=== PATIENT | female | born 1925 ===

== ENCOUNTER 2016-02-13 20:17 | Inpatient (IN) | payer OTHER ==
[~2016-02-13] VITALS: Ht 144.8 cm; Wt 62.0 kg
[~2016-02-13 20:17] MED LIST: ETOMIDATE 20 MG INJ ONE
[2016-02-13 20:25] VITALS: TEMP 98.7
[2016-02-13] MEDS ORDERED: PROPOFOL 100 ML ONE (20:40)
[2016-02-13] MEDS ORDERED: PROPOFOL 100 ML IV STA (20:41)
[2016-02-13] MEDS ORDERED: SUCCINYLCHOLINE CHLORIDE 100 MG/5 ML SYG IV STA (20:41)
[2016-02-13] MEDS ORDERED: ETOMIDATE 20 MG INJ IV STA (20:41)
[2016-02-13] MEDS ORDERED: SOD CHLORIDE 0.9% 1,000 ML IV STA (20:41)
[2016-02-13] MEDS ORDERED: POTA8TAB35 PO (21:10)
[2016-02-13] MEDS ORDERED: PRED5 PO (21:11)
[2016-02-13 21:12] LABS: BASOPHILS % 0.2 % (0.0-2.0); EOSINOPHILS # 0.1 10^3/ul (0.0-0.5); EOSINOPHILS % 0.8 % (0.0-7.0); HEMATOCRIT 40.5 % (37.0-47.0); HEMOGLOBIN 13.1 g/dl (12.0-16.0); LYMPHOCYTES # 5.5 10^3/ul (0.8-2.9); LYMPHOCYTES % 33.3 % (15.0-51.0); MEAN CORPUSCULAR HEMOGLOBIN 29.6 pg (29.0-33.0); MEAN CORPUSCULAR HGB CONC 32.3 g/dl (32.0-37.0); MEAN CORPUSCULAR VOLUME 91.5 fl (82.0-101.0); MEAN PLATELET VOLUME 9.9 fl (7.4-10.4); MONOCYTES % 5.9 % (0.0-11.0); NEUTROPHIL # 9.9 10^3/ul (1.6-7.5); NEUTROPHILS % 59.8 % (39.0-77.0); PLATELET COUNT 246 10^3/UL (140-440); RED BLOOD COUNT 4.42 10^6/ul (4.20-5.40); RED CELL DISTRIBUTION WIDTH 13.7 % (11.5-14.5); UNCORRECTED WBC 16.6 10^3/ul (4.8-10.8); WHITE BLOOD COUNT 16.6 10^3/ul (4.8-10.8)
[2016-02-13] MEDS ORDERED: LOSA50TA6 PO (21:12)
[2016-02-13] MEDS ORDERED: CEPH500C PO (21:13)
[2016-02-13] MEDS ORDERED: ACET-820 PO (21:15)
[2016-02-13] MEDS ORDERED: HYDR-3671 PO (21:15)
[2016-02-13] MEDS ORDERED: FURO40TA4 PO (21:16)
[2016-02-13] MEDS ORDERED: CALC600T11 PO (21:17)
[2016-02-13] MEDS ORDERED: ASPI-664 PO (21:17)
--- NOTE | 2016-02-13 21:18 | RADRPT ---
PROCEDURE: CR, chest CLINICAL INDICATION: Chest pain/after intubation. TECHNIQUE: AP chest. COMPARISON: None available. FINDINGS: The tip of the ET tube is seen 1.5 cm above the laila. The heart is not enlarged. There is calcif ied atherosclerosis of the aortic arch. There is no acute infiltrate in the lungs. No pleural effu sera. IMPRESSION: 1. ET tube in place 1.5 cm above the laila. 2. Calcified atherosclerosis of the aortic arch. 3. Unremarkable chest x-ray. RPTAT: GG .Roque Paredes MD, Date Time Electronically viewed and signed by .Roque Paredes MD, on 02/13/2016 21:17 .Y/
[2016-02-13] MEDS ORDERED: CHOL100062 PO (21:19)
[2016-02-13] MEDS ORDERED: OMEG10006 PO (21:19)
[2016-02-13 21:20] LABS: POTASSIUM 3.4 mmol/L (3.5-5.1)
[2016-02-13] MEDS ORDERED: CYAN100080 PO (21:20)
[2016-02-13] MEDS ORDERED: ATOR20TA38 PO (21:20)
[2016-02-13 21:21] LABS: INR 0.99; PROTIME 13.1 Sec (12.2-14.2)
[2016-02-13] MEDS ORDERED: ATEN50TA PO (21:21)
[2016-02-13 21:22] LABS: PARTIAL THROMBOPLASTIN TIME 23.9 Sec (25.0-35.0)
[2016-02-13 21:23] LABS: CREATININE 0.96 mg/dl (0.44-1.00)
[2016-02-13 21:24] LABS: CALCIUM 8.1 mg/dl (8.4-10.2)
[2016-02-13 21:27] LABS: CONDITION 1
[2016-02-13 21:35] LABS: TROPONIN-I 0.088 ng/ml (0.00-0.12)
[2016-02-13] MEDS ORDERED: MIDAZOLAM 50 MG in DEXTROSE 5% 40 ML IV STA (21:58)
[2016-02-13] MEDS ORDERED: MIDAZOLAM 1 MG/ML 2 ML INJ IV ONE (22:00)
[2016-02-13 22:13] LABS: AADO2 Arterial 178.1 mmHg (7.0-24.0); Allen Test ACCEPTAB; Arterial Base Excess -3.8 mmol/L (-3.0-3); Arterial COHb 0.2 % (0.0-3.0); Arterial Fraction of Oxyhgb 98.9 % (93.0-99.0); Arterial HCO3 21.8 mmol/L (22.0-26.0); Arterial MetHb 0.3 % (0.0-1.5); Arterial Total Hemglobin 11.8 g/dl (12.0-18.0); Blood Gas Low PEEP Setting 0 cmH2O; MODE VENT - AC
--- NOTE | 2016-02-13 22:54 | ERA ---
ER Documentation Chief Complaint Date/Time DATE: 02/13/16 TIME: 22:42 Chief Complaint syncopal episode, mistaken for rosc HPI This is an 89-year-old female brought in as post CPR. Circumstances are unknown whether the patient was seen syncopal or found down. EMS reports they were called by [facility] EMT that the patient did not have a pulse. There were doing CPR for 6-7 minutes before EMS arrival. EMS states that on their arrival they had the paramedics stop CPR and the patient was breathing agonal he did have a pulse of sinus tachycardia. Patient was placed in the stretcher and brought into the ER. They state that shortly after loading the patient into the ambulance that she began to wake up and was moving and talking and was awake and alert and oriented. EMS reports that they feel these windscreen fitter were wrong the patient never lost her pulse because of how fast the patient woke up and was awake and alert and coherent. They feel the patient was more of a syncopal episode with possible low blood pressure. On arrival here the patient is awake and alert and complaining that her chest hurts and she is having a difficult time breathing. She is tripoding and breathing with pursed lips. She will not directly answer historical questions and will not answer my questions if she remembers the preceding events. She does keep saying that her ribs hurt and she is having a hard time breathing. She will not answer my questions regarding her past medical history ROS All systems reviewed and are negative except as per history of present illness. Medications Home Meds Reported Medications Atenolol* (Atenolol*) 50 Mg Tablet, 100 MG PO DAILY, #60 TAB 02/13/16 Atorvastatin Calcium* (Atorvastatin Calcium*) 20 Mg Tablet, 20 MG PO DAILY, #30 TAB 02/13/16 Cyanocobalamin* (Vitamin B-12*) 1,000 Mcg Tablet.sa, 1000 MCG PO DAILY, TAB 02/13/16 Cholecalciferol* (Vitamin D3*) 1,000 Unit Tablet, 1000 UNIT PO DAILY, TAB 02/13/16 [place]-3 Fatty Acids (OMEGA-3) 1,000 Mg Capsule, 1000 MG PO DAILY, CAP 02/13/16 Calcium Carbonate* (Calcium Carbonate*) 600 MG Ca Tab, 600 MG PO BID, TAB 02/13/16 Aspirin* (Aspirin* EC) 81 Mg Tablet.dr, 81 MG PO DAILY, TAB 02/13/16 Furosemide* (Furosemide*) 40 Mg Tablet, 40 MG PO DAILY, TAB 02/13/16 Hydralazine Hcl* (Hydralazine Hcl*) 25 Mg Tab, 25 MG PO BID, #60 TAB 02/13/16 Acetaminophen with Codeine (Tylenol with Codeine #4 Tablet) 1 Each Tablet, 1 EACH PO Q6 Y for PRN, TAB 02/13/16 Cephalexin* (Cephalexin*) 500 Mg Capsule, 500 MG PO Q6, #28 CAP 02/13/16 Losartan Potassium* (Losartan Potassium*) 50 Mg Tablet, 50 MG PO DAILY, TAB 02/13/16 Prednisone* (Prednisone*) 5 Mg Tab, 7.5 MG PO DAILY, TAB 02/13/16 Potassium Chloride* (Klor-Con*) 8 Meq Tablet.sa, 16 MEQ PO DAILY, TAB 02/13/16 Allergies Allergies: Coded Allergies: Penicillins (Verified Allergy, Mild, 02/13/16) meloxicam (Unverified Allergy, Unknown, 02/13/16) PMhx/Soc Smoking Status: Unknown if ever smoked FmHx Unable to obtain because the patient will answer my questions Physical Exam Vitals Vital Signs Date Time Temp Pulse Resp B/P Pulse Ox O2 Delivery O2 Flow Rate FiO2 02/13/16 21:40 75 16 100 40 02/13/16 21:10 84 16 100 100 02/13/16 20:50 92 16 100 100 02/13/16 20:22 108 25 117/79 100 Physical Exam Const: Well-developed, well-nourished Head: Atraumatic, normocephalic Eyes: Normal Conjunctiva, PERRLA, EOMI, normal sclera, no nystagmus ENT: Normal External Ears, Nose and Mouth, moist mucus membranes. Neck: Full range of motion. No meningismus, no lymphadenopathy. Resp: Mild decreased breath sounds bilaterally with scattered rhonchi, rhonchi, no rales, the patient is respiratory distress starting to fatigue she is breathing with pursed lips Cardio: Tachycardia, no murmurs, S1 S2 present Abd: Soft, non tender x 4, non distended. Normal bowel sounds, no guarding or rebound, no pulsitile abdominal masses or bruits Skin: No petechiae or rashes, no ecchymosis , no maculopapular rash Back: No midline or flank tenderness Ext: No cyanosis, or edema, FROM x 4, bilateral forearm skin tears, right knee has an old skin tear wound, neurovascularly intact x 4 Neur: Awake and alert, STR 5/5 x 4, sensation intact x 4, no focal findings, cerebellum intact Psych: Normal Mood and Affect, somewhat anxious Result Diagram: 02/13/16204902/13/162049 Results 24 hrs Laboratory Tests Test 02/13/16 20:41 02/13/16 20:50 Arterial Blood HCO3 21.8mmol/L Arterial Blood Base Excess -3.8mmol/L Arterial Blood Oxygen Saturation 99.4mmHG Albert Test ACCEPTAB Arterial Blood Gas Puncture Site Left Radial Arterial Blood Carboxyhemoglobin 0.2% Arterial Blood Date Drawn 02/13/2016 9:18:25 PM Arterial Blood Methemoglobin 0.3% Arterial Blood pCO2 (Temp correct) 41.5mmhg Arterial Blood pH (Temp corrected) 7.338 Arterial Blood pO2 (Temp corrected) 493.4mmHG Blood Gas A-a O2 Differential 178.1mmHg Blood Gas Actual Respiration Rate 16 Blood Gas Inspiratory Pressure 27.0 Blood Gas Low PEEP Setting 0cmH2O Blood Gas Modality VENT - AC Blood Gas Notified Time 02/13/2016 9:35:26 PM Blood Gas Notified Whom AA Blood Gas Respiration Rate 16.0 Blood Gas Specimen Source Blood arterial Blood Gas Temperature 37.0C Blood Gas Tidal Volume 450.0mL FiO2 100.0% Oxyhemoglobin Percent 98.9% Total Hemoglobin 11.8g/dl Activated Partial Thromboplast Time 23.9Sec Anion Gap 23 B-Type Natriuretic Peptide 443PG/ML Basophils # 0.010^3/ul Basophils % 0.2% Blood Urea Nitrogen 29mg/dl Calcium Level 8.1mg/dl Carbon Dioxide Level 23mmol/L Chloride Level 103mmol/L Creatinine 0.96mg/dl Eosinophils # 0.110^3/ul Eosinophils % 0.8% Glucose Level 206mg/dl Hematocrit 40.5% Hemoglobin 13.1g/dl INR International Normalized Ratio 0.99 Lymphocytes # 5.510^3/ul Lymphocytes % 33.3% Mean Corpuscular Hemoglobin 29.6pg Mean Corpuscular Hemoglobin Concent 32.3g/dl Mean Corpuscular Volume 91.5fl Mean Platelet Volume 9.9fl Monocytes # 1.010^3/ul Monocytes % 5.9% Neutrophils # 9.910^3/ul Neutrophils % 59.8% Nucleated Red Blood Cells # 0.010^3/ul Nucleated Red Blood Cells % 0.0/100WBC Platelet Count 93666^3/UL Potassium Level 3.4mmol/L Prothrombin Time 13.1Sec Prothrombin Time Ratio 1.0 Red Blood Count 4.4210^6/ul Red Cell Distribution Width 13.7% Sodium Level 146mmol/L Troponin I 0.088ng/ml White Blood Count 16.610^3/ul Current Medications Medications (Trade) Dose Ordered Sig/Caroline Route PRN Reason Start Time Stop Time Status Last Admin Dose Admin Propofol 100 ml @ ud STK-MED ONCE .ROUTE 02/13/16 20:40 02/13/16 20:41 DC Sodium Chloride (NS) 1,000 ml @ 1,000 mls/hr Q1H STAT IV 02/13/16 20:41 02/13/16 21:40 DC 02/13/16 20:53 Succinylcholine Chloride (Anectine Syringe) 80 mg ONCE STAT IV 02/13/16 20:41 02/13/16 20:46 DC Etomidate 20 mg 20 mg ONCE STAT IV 02/13/16 20:41 02/13/16 20:46 DC Propofol (Diprivan) 100 ml @ 1.758 mls/ hr ONCE STAT IV 02/13/16 20:41 02/16/16 05:33 02/13/16 20:53 Midazolam HCl 5.86 mg 5.86 mg ONCE ONCE IV 02/13/16 22:00 02/13/16 22:01 DC 02/13/16 22:30 Midazolam HCl/ Dextrose (Versed/D5W) 50 ml @ 3 mls/hr [id number] STAT IV 02/13/16 21:58 02/14/16 14:37 02/13/16 22:28 Procedures/MDM EKG: Rate/Rhythm: Sinus tachycardia heart rate 105 QRS, ST, QT: NORMAL TX, QRS, QT] Impression: Sinus tachycardia PROCEDURE: CR, chest CLINICAL INDICATION: Chest pain/after intubation. TECHNIQUE: AP chest. COMPARISON: None available. FINDINGS: The tip of the ET tube is seen 1.5 cm above the laila. The heart is not enlarged. There is calcified atherosclerosis of the aortic arch. There is no acute infiltrate in the lungs. No pleural effusion. IMPRESSION: 1. ET tube in place 1.5 cm above the laila. 2. Calcified atherosclerosis of the aortic arch. 3. Unremarkable chest x-ray. RPTAT: GG .Roque Paredes MD, MD Date Time Electronically viewed and signed by .Roque Paredes MD, MD on 02/13/2016 21:17 .Y/ CC: YANG OAKES DO Endotracheal Intubation by me: Pre assessment performed. See preceding note for details. Pre-oxygenation performed with 100% oxygen RSI: Performed w/o complication or hypoxic events. Medications as ordered. Blade: Mac 4 ET Tube: 7.0] cm Depth: 20] cm at the lip Intubation confirmed by colorimetric CO2, equal breath sounds, quiet over the stomach. Chest X-ray 1V Interpreted by me: 1.5 cm above the laila ET tube. Normal soft tissue, No pneumothorax. The patient's blood pressure then dropped to 70s systolic. [place] the patient was air trapping. I increased the I: E ratio, disconnecting the ET tube and pushed all of the air out of the patient's chest. This brought the blood pressure up to 84 systolic However the patient's blood pressure continued to decline despite repeated treatments as above Central Line Placement by me: Patient consented, sterilely draped, full prep, gown, glove, mask, time out performed. Anesthesia: None Location: Right femoral] Device: Multiple lumen Technique: Seldinger technique. Secured with suture. Results: Venous return from all ports with easy saline flush. No complications. Guide wire retrieved and disposed of. Critical Care: Time: 40 minutes Treatments/Evaluations: Close monitoring and treatment of unstable vital signs, cardiorespiratory, and neurologic status, while maintaining tight balance of fluid, respiratory, and cardiac interventions, outside of dictated billable procedures Insert into this patient truly had a syncopal episode versus a cardiac arrest. The patient was having chest pain due to the status post CPR with very sore ribs after 5-6 minutes of chest compressions. Respiratory decline may be due to this or to a pulmonary condition such as asthma or heart failure. Patient's blood pressures been supported currently by levophed. She is in critical condition and will need to be further monitored and worked up. No evidence of pneumonia on chest x-ray no heart failure on chest x-ray. Will need to follow troponins. No evidence of acute [place] on EKG. Do not feel this is sepsis. Patient is a [place] patient currently awaiting a call back. The patient is un stable for transfer at this time We will admit and stabilize possibly transfer tomorrow Departure Diagnosis: Primary Impression: Respiratory arrest Condition: Critical YANG OAKES DO Feb 13, 2016 22:53
[2016-02-14] VITALS (89 sets, daily range): BP systolic 81–163; BP diastolic 41–115; PULSE 76–106; RESP 12–25; Ht 144.8 cm; Wt 62.0 kg
[2016-02-14] MEDS ORDERED: ALBUTEROL 0.083% (NEB) 2.5 MG/3 ML AMP HHN ONE
[2016-02-14] MEDS ORDERED: NACL 0.9% 3 ML SYG IV SCH
[2016-02-14] MEDS ORDERED: ONDANSETRON 4 MG INJ IV PRN
[2016-02-14] MEDS: D5W-0.45 NACL + KCL 20 MEQ 1,000 ML IV SCH ×3 (00:42→20:16)
[2016-02-14] MEDS ORDERED: MIDAZOLAM 50 MG in DEXTROSE 5% 40 ML IV SCH (01:30)
[2016-02-14 04:51] LABS: BASOPHILS % 0.3 % (0.0-2.0); EOSINOPHILS # 0.1 10^3/ul (0.0-0.5); EOSINOPHILS % 0.3 % (0.0-7.0); HEMATOCRIT 34.1 % (37.0-47.0); HEMOGLOBIN 11.2 g/dl (12.0-16.0); LYMPHOCYTES # 3.1 10^3/ul (0.8-2.9); LYMPHOCYTES % 20.1 % (15.0-51.0); MEAN CORPUSCULAR HEMOGLOBIN 29.9 pg (29.0-33.0); MEAN CORPUSCULAR HGB CONC 32.9 g/dl (32.0-37.0); MEAN CORPUSCULAR VOLUME 90.9 fl (82.0-101.0); MEAN PLATELET VOLUME 8.8 fl (7.4-10.4); MONOCYTE # 0.7 10^3/ul (0.3-0.9); MONOCYTES % 4.8 % (0.0-11.0); NEUTROPHIL # 11.3 10^3/ul (1.6-7.5); NEUTROPHILS % 74.5 % (39.0-77.0); PLATELET COUNT 174 10^3/UL (140-440); RED BLOOD COUNT 3.75 10^6/ul (4.20-5.40); RED CELL DISTRIBUTION WIDTH 13.8 % (11.5-14.5); UNCORRECTED WBC 15.2 10^3/ul (4.8-10.8); WHITE BLOOD COUNT 15.2 10^3/ul (4.8-10.8)
[2016-02-14 04:59] LABS: CONDITION 1
[2016-02-14 05:22] LABS: ALBUMIN 2.7 g/dl (3.3-4.9)
[2016-02-14 05:25] LABS: ALBUMIN/GLOBULIN RATIO 1.12; BILIRUBIN,INDIRECT 0.3 mg/dl (0-1.1); BILIRUBIN,TOTAL 0.3 mg/dl (0.2-1.3); CREATININE 0.76 mg/dl (0.44-1.00); TOTAL PROTEIN 5.1 g/dl (6.1-8.1)
[2016-02-14 05:26] LABS: CALCIUM 7.5 mg/dl (8.4-10.2); MAGNESIUM 1.9 mg/dl (1.7-2.5); PHOSPHORUS 2.8 mg/dl (2.5-4.9)
[2016-02-14 05:45] LABS: POTASSIUM 2.6 mmol/L (3.5-5.1)
[2016-02-14] MEDS: PANTOPRAZOLE 40 MG INJ IV SCH (05:45)
[2016-02-14] MEDS: FUROSEMIDE 40 MG INJ IV SCH (05:45)
--- NOTE | 2016-02-14 05:53 | RADRPT ---
PROCEDURE: XR Chest. CLINICAL INDICATION: Respiratory failure TECHNIQUE: A single AP view of the chest was obtained. COMPARISON: Chest x-ray dated 02/13/2016 FINDINGS: The endotracheal tube tip is approximately 1.6 cm above the laila. There is mild coarsening of interstitial markings. No focal airspace opacification, pleural effusio n or pneumothorax is seen. The cardiomediastinal silhouette is within normal limits for size. Calci fications are seen within the aortic arch. The osseous structures demonstrate senescent changes. IMPRESSION: 1. Chronic-appearing interstitial changes. No radiographic evidence of acute cardiopulmonary disea se. No significant interval change. 2. Aortic atherosclerosis. 3. Endotracheal tube tip 1.6 cm above the laila. RPTAT: HH .Elisa Levine MD, Date Time Electronically viewed and signed by .Elisa Levine MD, on 02/14/2016 05:53 .G/
[2016-02-14] MEDS ORDERED: VANCOMYCIN IV PER PHARMACY XX SCH (06:30)
[2016-02-14] MEDS: POTASSIUM CHLORIDE 250 ML IVPB SCH ×2 (07:05→11:12)
[2016-02-14 08:14] LABS: AADO2 Arterial 137.9 mmHg (7.0-24.0); Allen Test ACCEPTAB; Arterial Base Excess 4.1 mmol/L (-3.0-3); Arterial HCO3 26.8 mmol/L (22.0-26.0); Blood Gas Low PEEP Setting 0 cmH2O; MODE VENT - AC
[2016-02-14] MEDS: VANCOMYCIN 1 GM in NS 250 ML IVPB SCH (08:17)
[2016-02-14] MEDS: PIPER-TAZO 3.375 GM IV (PMX) 100 ML IVPB SCH ×3 (08:17→23:53)
--- NOTE | 2016-02-14 08:45 | HP ---
DATE OF ADMISSION: 02/13/2016 TIME: 4 a.m. CHIEF COMPLAINT: Syncope. HISTORY OF PRESENT ILLNESS: The patient is an 89-year-old female with unclear medical history. Acc ording to caregiver, the patient appears to be developing a dementia based on home medications. The patient appears to have hypertension and dyslipidemia. The patient reportedly syncopized at home w ith a caregiver. She continued to syncopize even while getting into bed. According to caregiver, s he did not lose consciousness. The patient initially syncopized in the bathroom, she did get a cut on her arm. EMS was called, and the patient reportedly did not have a pulse. CPR was done for abou t 6 to 7 minutes. EMS stated that on arrival they had paramedics stop CPR. The patient was breathi ng agonally and did have a pulse of sinus tachycardia. En route, the patient was waking up, was mov ing and talking, and was alert and oriented. EMS reports that they feel that the therapeutic recreation assistant were wrong, t he patient never lost pulse because of how fast patient woke up and was awake and alert and coherent , so the patient likely just had a syncopal episode with hypotension. On arrival in the ED, the pat vik was awake and alert, complaining that her chest hurt. She was having difficulty breathing. Th e patient was tripoding and breathing with pursed lips. She was unable directly to answer any histo rical questions. The patient kept reporting that her ribs hurt. Ultimately she was admitted for [facility]. The patient is currently in the ICU, intubated and sedated. PAST MEDICAL HISTORY: Possible asthma, possible dementia, hypertension, dyslipidemia. PAST SURGICAL HISTORY: Unknown. HOME MEDICATIONS: 1. Atenolol. 2. Atorvastatin. 3. Vitamin B12. 4. Vitamin D3. 5. Keyes. 6. Calcium. 7. Aspirin 8. Furosemide. 9. Hydralazine. 10. Tylenol. 11. Cephalexin. 12. Losartan. 13. Prednisone. 14. Potassium chloride. ALLERGIES: 1. PENICILLIN. 2. MELOXICAM. FAMILY HISTORY: Unable to obtain. SOCIAL HISTORY: Unable to obtain. REVIEW OF SYSTEMS: Unable to obtain. PHYSICAL EXAMINATION: VITAL SIGNS: Temperature is 96.0, pulse 83, respiratory rate 16, BP is 108/60, saturation 100% on m echanical ventilation. GENERAL: Intubated and sedated. HEENT: Normocephalic, atraumatic. Pupils equal, round, reactive to light. CHEST: Clear to auscultation. CARDIOVASCULAR: Regular rate and rhythm. ABDOMEN: Nondistended, soft. EXTREMITIES: No clubbing, cyanosis, edema. Multiple bruises noted in both extremities. LABORATORIES: White count is 16.6, hemoglobin is 13.1, platelets are 246. Chemistry: Sodium is 14 6, potassium is 3.4, chloride is 103, BUN is 29. Troponin is 0.08. BNP is 443. 0.99. DIAGNOSTICS: Chest x-ray on arrival showed chronic-appearing interstitial changes, no evidence of a cute cardiopulmonary disease, no significant interval change. ASSESSMENT AND PLAN: 1. Acute respiratory failure. The patient now intubated, will obtain a pulmonology consultation. X-ray shows no significant findings. Will attempt to wean. 2. Recurrent syncope. This is likely secondary to persistent hypotension. The patient's BP is low at this time and is requiring pressors. Cause of hypertension is unclear, it could be secondary to medication overuse versus infectious etiology. We will treat with broad-spectrum antibiotics at th is time. Chest x-ray shows no pneumonia. We will follow up on UA. Will be treated once again with broad-spectrum antibiotics. 3. Questionable history of pulselessness. Once again, according to EMS reports, they feel that the patient did not ever lose pulse and that CPR was given mistakenly as the pulse was difficult to fee l secondary to the hypotension. The patient was waking up en route and in the ER. 4. Shock. The patient does have leukocytosis, has no fevers. She does have some hypothermia. Tj l treat with broad-spectrum antibiotics. No clear source of infection is noted at this time. The p atient's hypotension could once again be secondary to blood pressure medication overuse. 5. Questionable history of asthma. We will give breathing treatments as needed. 6. 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 7. History of hypertension. Will hold blood pressure medications secondary to hypotension. 8. Prophylaxis: Lovenox. Dictated By: SANTIAGO MELGAR MD BS/NTS Conf#: [id number] DID#: [id number]
[2016-02-14] MEDS ORDERED: ENOXAPARIN 40 MG/0.4 ML SYG SC SCH ×2 (09:00→14:00)
--- NOTE | 2016-02-14 11:14 | RADRPT ---
PROCEDURE: US Carotids. CLINICAL INDICATION: Dizziness TECHNIQUE: Multiple sonographic of the carotid bifurcation region and vertebral arteries were obta ined utilizing gordillo scale, duplex and color-flow imaging. The images were reviewed on a PACS worksta tion. COMPARISON: No prior studies are available for comparison. FINDINGS: Evaluation of the right carotid bifurcation region reveals the 62% stenosis in the right carotid bul b. Evaluation of the left carotid bifurcation region reveals a 24% stenosis in the left carotid bulb. There is antegrade flow within the vertebral arteries bilaterally. RIGHT CAROTID MEASUREMENTS: Common Carotid [id number] (cm/sec) Internal Carotid Artery - proximal 51 (cm/sec) Internal Carotid Artery - mid53 (cm/sec) Internal Carotid Artery - [id number] (cm/sec) External Corotid Artery 65 (cm/sec) Vertebral Artery 75 (cm/sec) Internal Carotid/Common Carotid 1.6 LEFT CAROTID MEASUREMENTS: Common Carotid Artery 71 (cm/sec) Internal Carotid Artery - proximal 47 (cm/sec) Internal Carotid Artery - mid 55 (cm/sec) Internal Carotid Artery - distal 64 (cm/sec) External Corotid Artery 47 (cm/sec) Vertebral Artery 77 (cm/sec) Internal Carotid/Common Carotid 0.9 IMPRESSION: 62% stenosis in the right carotid bulb. 24% stenosis in the left carotid bulb. Antegrade flow in the vertebral arteries bilaterally. If further characterization of the arterial vasculature is needed CTA is recommended. RPTAT: AA .Toan Shah MD, MD Date Time Electronically viewed and signed by .Toan Shah MD, MD on 02/14/2016 11:13 .P/
--- NOTE | 2016-02-14 12:26 | CONS ---
DATE OF ADMISSION: 02/13/2016 DATE OF CONSULTATION: 02/14/2016 REASON FOR CONSULTATION: Ventilator management. Thank you, Dr. Shah, for this consultation. HISTORY OF PRESENT ILLNESS: This is an 89-year-old lady who was found down at home with presumed sy ncopal episode. Upon arrival of EMS, CPR was commenced. Patient had spontaneous return of circulat ion and unclear whether she was pulseless at any point, brought here for further evaluation and note d to have significant respiratory distress requiring emergent intubation and await for airway protec tion. PAST MEDICAL HISTORY: Dementia, hypertension, hyperlipidemia. MEDICATIONS: Per chart. ALLERGIES: PENICILLIN, MELOXICAM. FAMILY HISTORY: Unknown. SYSTEMS REVIEW: A 12-point review of systems currently unable to perform. PHYSICAL EXAMINATION: GENERAL: Elderly lady, opens eyes to voice. VITAL SIGNS: Currently afebrile, pulse is 100, blood pressure 121/60, O2 saturation 96%, FIO2 of 40 %. NECK: Supple. No JVD or lymphadenopathy. CARDIAC: S1, S2, no added sounds or murmurs. CHEST: Diminished air entry bilaterally with rhonchi. ABDOMEN: Soft, nontender. No guarding or rebound. EXTREMITIES: No cyanosis, clubbing, edema. NEUROLOGIC: Generalized weakness, but no obvious focal deficits. LABORATORIES: White count 15.2, hemoglobin 11.2, platelets 174, potassium 2.6 this morning. BUN 30 , creatinine 0.76. INR was 0.99. Arterial blood gas pH 7.5, pCO2 of 34, PaO2 of 107. Chest x-ray was reviewed, shows endotracheal tube in place, but otherwise no significant abnormaliti es. IMPRESSION AND PLAN: 1. Syncopal episode. 2. Questionable cardiac arrest. 3. History of dementia. 4. Possible aspiration component. The patient to have a UA, C and S and continue mechanical ventil ation and will attempt CPAP trial when more alert. Continue DVT and GI prophylaxis. Dictated By: ASHLEY BOUREN/LOIS Conf#: [id number] DID#: [id number]
--- NOTE | 2016-02-14 12:36 | PN ---
Date/Time of Note Date/Time of Note DATE: 02/14/16 TIME: 12:30 Assessment/Plan VTE Prophylaxis VTE Prophylaxis Intervention: LMWH Lines/Catheters IV Catheter Type (from Nrs): Central Line Central line still needed: Yes Urinary Cath still in place: Yes Reason Cath still needed: urinary retention Assessment/Plan Chief Complaint/Hosp Course ASSESSMENT AND PLAN: 89 F with PMHx of possible HTN, asthma, high chol, early dementia, p/w syncope/fall, res failure - intubated. 1. Acute respiratory failure. The patient now intubated. - f/u pulmonology consultation rec's, for CPAP trial today. X-ray shows no significant findings. Will attempt to wean. - continue Vanco and Zosyn 2. Recurrent syncope - possibly secondary to persistent hypotension. The patient's BP is low at this time and is requiring pressor x 1. Cause of hypotension is unclear, it could be secondary to medication overuse versus infectious etiology as well. Carotid blockage noted on carotid U/S as well (R>L) . - check head CT and CTA neck - continue broad-spectrum antibiotics at this time. Chest x-ray shows no pneumonia. - We will follow up on UA. - f/u ECHO results (pending) 3. Questionable history of pulselessness. Once again, according to EMS reports , they feel that the patient did not ever lose pulse and that CPR was given mistakenly as the pulse was difficult to feel secondary to the hypotension. The patient was waking up en route and in the ER. - monitor 4. Shock. The patient does have leukocytosis, has no fevers. She does have some hypothermia. No clear source of infection is noted at this time. The patient's hypotension could once again be secondary to blood pressure medication overuse. - again, continue broad-spectrum antibiotics. 5. Questionable history of asthma - breathing treatments as needed. 6. 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 7. History of hypertension. Will hold blood pressure medications secondary to hypotension. 8. Prophylaxis: Lovenox. 9. LE wound - wound care consult. Critical care time spent with care today = 45 min. Problems: Subjective 24 Hr Interval Summary Free Text/Dictation Pt still intubated, going to undergo possible CPAP trial. On low pressor support as well. Exam/Review of Systems Vital Signs Vitals Vital Signs Date Time Temp Pulse Resp B/P Pulse Ox O2 Delivery O2 Flow Rate FiO2 02/14/16 11:00 100 16 95/55 100 Mechanical Ventilator 02/14/16 10:58 35 02/14/16 08:00 97.7 02/13/16 20:25 15.0 Intake and Output 02/13/16 02/13/16 02/14/16 14:59 22:59 06:59 Intake Total 1000 ml 432.782 ml Output Total 280 ml Balance 1000 ml 152.782 ml Exam GENERAL: Intubated and sedated. HEENT: Normocephalic, atraumatic. Pupils equal, round, reactive to light. CHEST: Clear to auscultation. CARDIOVASCULAR: Regular rate and rhythm. ABDOMEN: Nondistended, soft. EXTREMITIES: No clubbing, cyanosis, edema. Multiple bruises noted in both extremities. Results Result Diagram: 02/14/16 0415 02/14/16 0415 Results 24 hrs Laboratory Tests Test 02/13/16 20:41 02/13/16 20:50 02/14/16 04:15 02/14/16 07:00 Arterial Blood HCO3 21.8 L 26.8 H Arterial Blood Base Excess -3.8 L 4.1 H Arterial Blood Oxygen Saturation 99.4 Albert Test ACCEPTAB ACCEPTAB Arterial Blood Gas Puncture Site Left Radial Left Radial Arterial Blood Carboxyhemoglobin 0.2 Arterial Blood Date Drawn 02/13/2016 9:18:25 PM 02/14/2016 7:40:23 AM Arterial Blood Methemoglobin 0.3 Arterial Blood pCO2 (Temp correct) 41.5 34.5 L Arterial Blood pH (Temp corrected) 7.338 L 7.508 H Arterial Blood pO2 (Temp corrected) 493.4 H 107.6 H Blood Gas A-a O2 Differential 178.1 H 137.9 H Blood Gas Actual Respiration Rate 16 16 Blood Gas Inspiratory Pressure 27.0 Blood Gas Low PEEP Setting 0 0 Blood Gas Modality VENT - AC VENT - AC Blood Gas Notified Time 02/13/2016 9:35:26 PM 02/14/2016 8:14:11 AM Blood Gas Notified Whom WICHO SKY Blood Gas Respiration Rate 16.0 16.0 Blood Gas Specimen Source Blood arterial Blood arterial Blood Gas Temperature 37.0 37.0 Blood Gas Tidal Volume 450.0 450.0 FiO2 100.0 40.0 Oxyhemoglobin Percent 98.9 Total Hemoglobin 11.8 L Activated Partial Thromboplast Time 23.9 L Anion Gap 23 H 13 # B-Type Natriuretic Peptide 443 Basophils # 0.0 0.0 Basophils % 0.2 0.3 Blood Urea Nitrogen 29 H 30 H Calcium Level 8.1 L 7.5 L Carbon Dioxide Level 23 28 Chloride Level 103 108 Creatinine 0.96 0.76 Eosinophils # 0.1 0.1 Eosinophils % 0.8 0.3 Glucose Level 206 153 Hematocrit 40.5 34.1 L Hemoglobin 13.1 11.2 L INR International Normalized Ratio 0.99 Lymphocytes # 5.5 H 3.1 H Lymphocytes % 33.3 20.1 Mean Corpuscular Hemoglobin 29.6 29.9 Mean Corpuscular Hemoglobin Concent 32.3 32.9 Mean Corpuscular Volume 91.5 90.9 Mean Platelet Volume 9.9 8.8 Monocytes # 1.0 H 0.7 Monocytes % 5.9 4.8 Neutrophils # 9.9 H 11.3 H Neutrophils % 59.8 74.5 Nucleated Red Blood Cells # 0.0 0.0 Nucleated Red Blood Cells % 0.0 0.0 Platelet Count 246 174 # Potassium Level 3.4 L 2.6 *L Prothrombin Time 13.1 Prothrombin Time Ratio 1.0 Red Blood Count 4.42 3.75 L Red Cell Distribution Width 13.7 13.8 Sodium Level 146 H 146 H Troponin I 0.088 White Blood Count 16.6 H 15.2 H Alanine Aminotransferase (ALT/SGPT) 208 H Albumin 2.7 L Albumin/Globulin Ratio 1.12 Alkaline Phosphatase 73 Aspartate Amino Transf (AST/SGOT) 208 H Direct Bilirubin 0.00 Globulin 2.40 Hemoglobin A1c 5.6 Indirect Bilirubin 0.3 Magnesium Level 1.9 Phosphorus Level 2.8 Total Bilirubin 0.3 Total Protein 5.1 L Medications Medications Current Medications Norepinephrine 16 mg/Dextrose 500 ml @ 1.87 mls/hr TITRATE IV Last administered on 02/13/16 23:05; Admin Dose 1.87 MLS/HR; Start 02/13/16 at 23:00 Potassium Chloride/Dextrose/ Sod Cl (D5-1/2ns + KCl 20 Meq) 1,000 ml @ 100 mls/ hr Q10H IV Last administered on 02/14/16 00:42; Admin Dose 100 MLS/HR; Start at 23:39 Ondansetron HCl (Zofran Inj) 4 mg Q6H PRN IV NAUSEA AND/OR VOMITING; Start 02/13 at 00:00 Morphine Sulfate (morphine) 2 mg Q4H PRN IV SEVERE PAIN LEVEL 7-10; Start at 00:00 Pantoprazole (Protonix Iv) 40 mg DAILY@06 IV Last administered on 02/14/16 05: 45; Admin Dose 40 MG; Start 02/14/16 at 06:00 Enoxaparin Sodium (Lovenox) 40 mg DAILY SC Last administered on 02/14/16 08:22 ; Admin Dose 40 MG; Start 02/14/16 at 09:00 Furosemide 40 mg 40 mg DAILY@06 IV Last administered on 02/14/16 05:45; Admin Dose 40 MG; Start 02/14/16 at 06:00 Midazolam HCl 50 mg/Dextrose 50 ml @ 0 mls/hr TITRATE IV Last administered on 03:27; Admin Dose 3 MLS/HR; Start 02/14/16 at 01:30 Potassium Chloride 250 ml @ 62.5 mls/hr Q4H IVPB Last administered on 11:12; Admin Dose 62.5 MLS/HR; Start 02/14/16 at 06:00; Stop 02/14/16 at 13: 59 Piperacillin Sod/ Tazobactam Sod 100 ml @ 200 mls/hr Q8 IVPB Last administered on 02/14/16 08:17; Admin Dose 200 MLS/HR; Start 02/14/16 at 06:30 Vancomycin HCl (Vancocin) 250 ml @ 125 mls/hr Q24H IVPB Last administered on 08:17; Admin Dose 125 MLS/HR; Start 02/14/16 at 07:00 ANDREW LUIS Feb 14, 2016 12:36
--- NOTE | 2016-02-14 13:30 | RADRPT ---
Echocardiogram Report Patient Name: DAIJA MARTE Gender: Female Date: 1925 Study Date: 14-Feb-2016 Catering Sous Chef: Lillian Trejo [facility] Location: 116 Ref. Physician: SANTIAGO MELGAR Quality: Good Procedures: Transthoracic echocardiogram with complete 2D, M-Mode, and doppler examination. Indications: Shock. Syncope. 2D/M Mode Doppler Measurement Value Normal Ranges Measurement Value Normal Ranges LVIDd 2D 3.4 3.5 - 5.6 cm AV Peak Atif 1.3 m/sec LVIDs 2D 2.4 2.1 - 4.1 cm AV Peak PG 6.3 mmHg LVPWd 2D 0.9 0.6 - 1.1 cm LVOT Peak Atif 0.9 m/sec IVSd 2D 0.9 0.6 - 1.1 cm LVOT Peak PG 3.5 mmHg AoR Diam 2D 2.6 2.0 - 3.7 cm MV E Peak Atif 0.6 m/sec EDV 2D 47.8 cm3 MV A Peak Atif 1.2 m/sec ESV 2D 14.2 cm3 MV E/A 0.5 LA Dimen 2D 2.5 2.3 - 4.0 cm MV Decel Time 142 msec MV Decel Davis 4 MV E/A 0.5 TR Peak Atif 2.8 m/sec TR Peak PG 30.4 mmHg RVSP 33.0 mmHg Findings Left Ventricle: Normal left ventricular systolic function. Normal left ventricular cavity size. Normal left ventricular wall thickness. Ejection fraction is visually estimated at 65 %. Tissue Doppler/Mitral Doppler indices are consistent with impaired relaxation (Stage I diastolic dysfunction). Right Ventricle: Moderate enlargement of right ventricle. Moderate right ventricular hypokinesis. Left Atrium: There is mild enlargement of left atrium. Right Atrium: There is moderate enlargement of right atrium. Mitral Valve: Mild mitral leaflet calcification. Mild mitral annular calcification. Trace mitral regurgitation. Aortic Valve: No significant aortic stenosis or insufficiency. Aortic cusps appear mildly calcified. Tricuspid Valve: Normal appearance of the tricuspid valve. Estimated peak PA systolic pressure 38 mmHg. There is mild tricuspid regurgitation. Pericardium: Normal pericardium with no significant pericardial effusion. Aorta: Normal aortic root. IVC: Inferior vena cava without respiratory collapse, however, patient on ventilator. Conclusions 1.Normal left ventricular systolic function. Normal left ventricular cavity size. Normal left ventricular wall thickness. Ejection fraction is visually estimated at 65 %. Tissue Doppler/Mitral Doppler indices are consistent with impaired relaxation (Stage I diastolic dysfunction). 2.Moderate enlargement of right ventricle. Moderate right ventricular hypokinesis with hypercontractility of the RV apex known as Boss`s sign which could be a sign of pulmonary embolism. 3.No significant valvular stenosis or regurgitation seen. 4.Estimated peak PA systolic pressure 38 mmHg assuming an RA pressure of 8 mmHg. Patient is on the ventilator. Electronically Signed By: Clarence Rhoades 14-Feb-2016 13:30:06 -0800 Patient Name: DAIJA MARTE Study Date: 14-Feb-2016 [id number]
--- NOTE | 2016-02-14 13:53 | CONS ---
Date/Time of Note Date/Time of Note DATE: 02/14/16 TIME: 13:46 Assessment/Plan Assessment/Plan Chief Complaint/Hosp Course Syncope/?cardiac arrest: Unclear circumstances but the echo shows an enlarged RV with dysfunction and in the setting of respiratory failure, hypoxia, tachycardia. hypotension, and syncope, is worrisome for a PE. Acute respiratory failure: possibly due to above Shock: unclear etiology but would be explained by massive PE. On low dose levophed H/o HTN -obtain CTA to r/o PE -if no bleeding contraindications can anticoagulate if not stable for CT -monitor rhythm Problems: Consultation Date/Type/Reason Admit Date/Time Feb 13, 2016 at 23:45 Date of Consultation: Feb 14, 2016 Type of Consultation: Cardiology Reason for Consultation syncope Referring Provider: ANDREW LUIS Hx of Present Illness 89 yo F with a h/o HTN, dementia, who was brought in after having multiple episodes of syncope at home with possible loss of pulse. It is unclear if she had a pulse but somebody did initiate CPR briefly. When the pt came to the ED she was in respiratory distress, hypotensive, hypoxic, and so she was intubated and started on pressor support. She remains intubated. Social History Smoking Status: Unknown if ever smoked Exam/Review of Systems Vital Signs Vitals Vital Signs Date Time Temp Pulse Resp B/P Pulse Ox O2 Delivery O2 Flow Rate FiO2 02/14/16 12:00 101 02/14/16 11:00 16 95/55 100 Mechanical Ventilator 02/14/16 10:58 35 02/14/16 08:00 97.7 02/13/16 20:25 15.0 Intake and Output 02/13/16 02/13/16 02/14/16 15:00 23:00 07:00 Intake Total 1000 ml 432.782 ml Output Total 505 ml Balance 1000 ml -72.218 ml Exam Constitutional: No alert Head: atraumatic, normocephalic ENMT: intubated Neck: No jvd (difficult to examine ) Respiratory: diminished breath sounds, No clear to auscultation Cardiovascular: regular rate and rhythm, No systolic murmur Gastrointestinal: non-tender, soft Skin: other (wounds on legs) Results Result Diagram: 02/14/16 0415 02/14/16 0415 Results 24 hrs Laboratory Tests Test 02/13/16 20:41 02/13/16 20:50 02/14/16 04:15 02/14/16 07:00 Arterial Blood HCO3 21.8 L 26.8 H Arterial Blood Base Excess -3.8 L 4.1 H Arterial Blood Oxygen Saturation 99.4 Albert Test ACCEPTAB ACCEPTAB Arterial Blood Gas Puncture Site Left Radial Left Radial Arterial Blood Carboxyhemoglobin 0.2 Arterial Blood Date Drawn 02/13/2016 9:18:25 PM 02/14/2016 7:40:23 AM Arterial Blood Methemoglobin 0.3 Arterial Blood pCO2 (Temp correct) 41.5 34.5 L Arterial Blood pH (Temp corrected) 7.338 L 7.508 H Arterial Blood pO2 (Temp corrected) 493.4 H 107.6 H Blood Gas A-a O2 Differential 178.1 H 137.9 H Blood Gas Actual Respiration Rate 16 16 Blood Gas Inspiratory Pressure 27.0 Blood Gas Low PEEP Setting 0 0 Blood Gas Modality VENT - AC VENT - AC Blood Gas Notified Time 02/13/2016 9:35:26 PM 02/14/2016 8:14:11 AM Blood Gas Notified Whom AA JLD Blood Gas Respiration Rate 16.0 16.0 Blood Gas Specimen Source Blood arterial Blood arterial Blood Gas Temperature 37.0 37.0 Blood Gas Tidal Volume 450.0 450.0 FiO2 100.0 40.0 Oxyhemoglobin Percent 98.9 Total Hemoglobin 11.8 L Activated Partial Thromboplast Time 23.9 L Anion Gap 23 H 13 # B-Type Natriuretic Peptide 443 Basophils # 0.0 0.0 Basophils % 0.2 0.3 Blood Urea Nitrogen 29 H 30 H Calcium Level 8.1 L 7.5 L Carbon Dioxide Level 23 28 Chloride Level 103 108 Creatinine 0.96 0.76 Eosinophils # 0.1 0.1 Eosinophils % 0.8 0.3 Glucose Level 206 153 Hematocrit 40.5 34.1 L Hemoglobin 13.1 11.2 L INR International Normalized Ratio 0.99 Lymphocytes # 5.5 H 3.1 H Lymphocytes % 33.3 20.1 Mean Corpuscular Hemoglobin 29.6 29.9 Mean Corpuscular Hemoglobin Concent 32.3 32.9 Mean Corpuscular Volume 91.5 90.9 Mean Platelet Volume 9.9 8.8 Monocytes # 1.0 H 0.7 Monocytes % 5.9 4.8 Neutrophils # 9.9 H 11.3 H Neutrophils % 59.8 74.5 Nucleated Red Blood Cells # 0.0 0.0 Nucleated Red Blood Cells % 0.0 0.0 Platelet Count 246 174 # Potassium Level 3.4 L 2.6 *L Prothrombin Time 13.1 Prothrombin Time Ratio 1.0 Red Blood Count 4.42 3.75 L Red Cell Distribution Width 13.7 13.8 Sodium Level 146 H 146 H Troponin I 0.088 White Blood Count 16.6 H 15.2 H Alanine Aminotransferase (ALT/SGPT) 208 H Albumin 2.7 L Albumin/Globulin Ratio 1.12 Alkaline Phosphatase 73 Aspartate Amino Transf (AST/SGOT) 208 H Direct Bilirubin 0.00 Globulin 2.40 Hemoglobin A1c 5.6 Indirect Bilirubin 0.3 Magnesium Level 1.9 Phosphorus Level 2.8 Total Bilirubin 0.3 Total Protein 5.1 L Medications Medications Current Medications Norepinephrine 16 mg/Dextrose 500 ml @ 1.87 mls/hr TITRATE IV Last administered on 02/13/16 23:05; Admin Dose 1.87 MLS/HR; Start 02/13/16 at 23:00 Potassium Chloride/Dextrose/ Sod Cl (D5-1/2ns + KCl 20 Meq) 1,000 ml @ 100 mls/ hr Q10H IV Last administered on 02/14/16 00:42; Admin Dose 100 MLS/HR; Start at 23:39 Ondansetron HCl (Zofran Inj) 4 mg Q6H PRN IV NAUSEA AND/OR VOMITING; Start 02/13 at 00:00 Morphine Sulfate (morphine) 2 mg Q4H PRN IV SEVERE PAIN LEVEL 7-10; Start at 00:00 Pantoprazole (Protonix Iv) 40 mg DAILY@06 IV Last administered on 02/14/16 05: 45; Admin Dose 40 MG; Start 02/14/16 at 06:00 Furosemide 40 mg 40 mg DAILY@06 IV Last administered on 02/14/16 05:45; Admin Dose 40 MG; Start 02/14/16 at 06:00 Midazolam HCl 50 mg/Dextrose 50 ml @ 0 mls/hr TITRATE IV Last administered on 03:27; Admin Dose 3 MLS/HR; Start 02/14/16 at 01:30 Potassium Chloride 250 ml @ 62.5 mls/hr Q4H IVPB Last administered on 11:12; Admin Dose 62.5 MLS/HR; Start 02/14/16 at 06:00; Stop 02/14/16 at 13: 59 Piperacillin Sod/ Tazobactam Sod 100 ml @ 200 mls/hr Q8 IVPB Last administered on 02/14/16 08:17; Admin Dose 200 MLS/HR; Start 02/14/16 at 06:30 Vancomycin HCl (Vancocin) 250 ml @ 125 mls/hr Q24H IVPB Last administered on 08:17; Admin Dose 125 MLS/HR; Start 02/14/16 at 07:00 Enoxaparin Sodium (Lovenox) 60 mg Q12 SC ; Start 02/14/16 at 21:00 Enoxaparin Sodium (Lovenox) 20 mg ONCE SC ; Start 02/14/16 at 14:00; Stop at 18:00 AUGUSTINE ROBERTSON Feb 14, 2016 13:53
[2016-02-14 17:03] LABS: ADD UMIC YES; URINE BILIRUBIN (Dip) NEGATIVE (NEGATIVE); URINE BLOOD (Dip) 1+ (NEGATIVE); URINE COLOR LT. YELLOW (YELLOW); URINE GLUCOSE (Dip) NEGATIVE (NEGATIVE); URINE KETONES (Dip) NEGATIVE (NEGATIVE); URINE LEUKOCYTE ESTERASE (Dip) TRACE (NEGATIVE); URINE NITRITE (Dip) NEGATIVE (NEGATIVE); URINE TOTAL PROTEIN (Dip) NEGATIVE (NEGATIVE); URINE UROBILINOGEN (Dip) 0.2 E.U./dL (0.1-1.0)
[2016-02-14 17:15] LABS: SQUAMOUS EPITHELIAL CELL,UR FEW; URIC ACID CRYSTALS,URINE FEW; URINE RBCS 0-2 /HPF (0)
[2016-02-14 17:16] LABS: BACTERIA,URINE FEW
[2016-02-14] MEDS ORDERED: SILVER SULFADIAZINE 1% 25 GM CR TOP ONE (19:30)
[2016-02-14] MEDS: ENOXAPARIN 60 MG/0.6 ML SYG SC SCH (20:18)
[2016-02-14] MEDS: ALBUTEROL HFA 8 GM INHALER INH SCH (21:23)
[2016-02-14] MEDS: IPRATROPIUM (HFA) 12.9 GM INHALER INH SCH (21:23)
[2016-02-14] MEDS ORDERED: IOHEXOL 100 ML ONE (23:04)
[2016-02-14] MEDS ORDERED: IOHEXOL 350MG/ML 50 ML BTL ONE (23:04)
[2016-02-14] MEDS ORDERED: SOD CHLORIDE 0.9% 100 ML ONE (23:04)
[2016-02-14] MEDS: morphine 2 MG INJ IV PRN (23:06)
--- NOTE | 2016-02-14 23:29 | RADRPT ---
PROCEDURE: Noncontrast CT Head. CLINICAL INDICATION: Pain. TECHNIQUE: Noncontrast CT of the head was obtained. The administered radiation dose was CTDI vol = 44 mGy, DLP = 720 mGy-cm. COMPARISON: No pertinent prior examinations were submitted for comparison. FINDINGS: The ventricles and cortical sulci are moderately enlarged. There is moderate decreased attenuation within the periventricular and subcortical white matter compatible with chronic microvascular change s. There is no acute intracranial hemorrhage or extra-axial fluid collection. There is no mass effect . No midline shift is identified. There is no loss of gordillo-white differentiation to suggest acute in farction. The orbits are within normal limits. The paranasal sinuses are well aerated. No destructive osseous lesion is identified. IMPRESSION: No acute findings. Moderate diffuse parenchymal volume loss and chronic microvascular changes. RPTAT: HIKT .Nito Rosa MD, Date Time Electronically viewed and signed by .Nito Rosa MD, on 02/14/2016 23:29 .T/
[2016-02-15] VITALS (47 sets, daily range): BP systolic 93–161; BP diastolic 46–127; PULSE 84–119; RESP 12–33
[2016-02-15] MEDS: IPRATROPIUM (HFA) 12.9 GM INHALER INH SCH ×3 (01:55→15:01)
[2016-02-15] MEDS: ALBUTEROL HFA 8 GM INHALER INH SCH ×3 (01:55→15:01)
[2016-02-15] MEDS: morphine 2 MG INJ IV PRN ×3 (03:43→16:09)
[2016-02-15 05:00] LABS: POTASSIUM 4.4 mmol/L (3.5-5.1)
[2016-02-15 05:01] LABS: BASOPHIL # 0.1 10^3/ul (0.0-0.1); BASOPHILS % 0.3 % (0.0-2.0); EOSINOPHILS % 0.1 % (0.0-7.0); HEMATOCRIT 33.4 % (37.0-47.0); HEMOGLOBIN 10.9 g/dl (12.0-16.0); LYMPHOCYTES # 2.3 10^3/ul (0.8-2.9); LYMPHOCYTES % 13.2 % (15.0-51.0); MEAN CORPUSCULAR HEMOGLOBIN 29.8 pg (29.0-33.0); MEAN CORPUSCULAR HGB CONC 32.7 g/dl (32.0-37.0); MEAN PLATELET VOLUME 9.7 fl (7.4-10.4); MONOCYTE # 1.1 10^3/ul (0.3-0.9); NEUTROPHIL # 14.2 10^3/ul (1.6-7.5); NEUTROPHILS % 80.4 % (39.0-77.0); PLATELET COUNT 175 10^3/UL (140-440); RED BLOOD COUNT 3.67 10^6/ul (4.20-5.40); RED CELL DISTRIBUTION WIDTH 13.9 % (11.5-14.5); UNCORRECTED WBC 17.6 10^3/ul (4.8-10.8); WHITE BLOOD COUNT 17.6 10^3/ul (4.8-10.8)
[2016-02-15 05:03] LABS: CREATININE 0.89 mg/dl (0.44-1.00)
[2016-02-15 05:04] LABS: CALCIUM 7.3 mg/dl (8.4-10.2); MAGNESIUM 1.8 mg/dl (1.7-2.5); PHOSPHORUS 2.3 mg/dl (2.5-4.9)
[2016-02-15 05:32] LABS: CONDITION 1
[2016-02-15] MEDS: D5W-0.45 NACL + KCL 20 MEQ 1,000 ML IV SCH ×2 (05:37→09:28)
[2016-02-15] MEDS: FUROSEMIDE 40 MG INJ IV SCH (05:38)
[2016-02-15] MEDS: PANTOPRAZOLE 40 MG INJ IV SCH (05:38)
[2016-02-15] MEDS: PIPER-TAZO 3.375 GM IV (PMX) 100 ML IVPB SCH ×2 (05:38→14:06)
[2016-02-15] MEDS: VANCOMYCIN 1 GM in NS 250 ML IVPB SCH (07:49)
[2016-02-15 08:15] LABS: AADO2 Arterial 85.4 mmHg (7.0-24.0); Allen Test ACCEPTAB; Arterial Base Excess -4.3 mmol/L (-3.0-3); Arterial COHb 0.3 % (0.0-3.0); Arterial Fraction of Oxyhgb 97.1 % (93.0-99.0); Arterial HCO3 19.1 mmol/L (22.0-26.0); Arterial MetHb 0.1 % (0.0-1.5); Arterial Total Hemglobin 12.2 g/dl (12.0-18.0); Blood Gas Low PEEP Setting 0 cmH2O; MODE VENT - AC
--- NOTE | 2016-02-15 08:45 | RADRPT ---
PROCEDURE: XR Chest. CLINICAL INDICATION: Shortness of breath. TECHNIQUE: Single frontal view. COMPARISON: 02/13/2016. FINDINGS: The endotracheal tube remains in satisfactory position. There is left basilar air space disease, wo rse than seen previously. The lungs are otherwise clear. The heart size is normal. There is calcification in the aorta consistent with atherosclerosis. There is no pleural effusion. There is no pneumothorax. IMPRESSION: 1. Left basilar atelectasis, worse than seen previously. 2. No other change from 02/13/2016. RPTAT: QQ .Dominick Chau MD, MD Date Time Electronically viewed and signed by .Dominick Chau MD, MD on 02/15/2016 08:45 .R/
[2016-02-15] MEDS ORDERED: SILVER SULFADIAZINE 1% 25 GM CR TOP SCH (09:00)
--- NOTE | 2016-02-15 09:10 | RADRPT ---
PROCEDURE: CTA Chest and pulmonary angiogram. CLINICAL INDICATION: Chest pain and shortness of breath. TECHNIQUE: CT scan of the chest and CT pulmonary angiogram was performed on a multidetector high-r esolution CT scanner. High-resolution thin slice coronal and sagittal imaging was obtained from the axial source images. 3-D volumetric rendered post processing was performed as well. The patient w as examined following the uncomplicated intravenous administration of 100 cc of Omnipaque-300. The i mages were reviewed on a PACS workstation. The total exam CTDI equals 55.26 and the total exam DLP e quals 827.72 mGy-cm. One or more of the following dose reduction techniques were used: Automated exposure control. Adjustment of the mA and/or kV according to patient size. Use of iterative reconstruction technique. COMPARISON: No prior studies are available for comparison. FINDINGS: CT chest: There are trace bilateral pleural effusions with basilar atelectasis. No focal opacification, pneum othorax, edema, or nodules are seen. ET tube terminates approximately 1.2 cm above the laila. Secr etions/debris is seen in the distal trachea and the main bronchi. The mediastinum is unremarkable without evidence for mass or lymphadenopathy. Scattered aortic vascu lar calcifications are present. The vascular structures of the mediastinum are normal in course and caliber. The heart size is mildly enlarged without pericardial thickening or effusion. The axilla ry, subpectoral, and supraclavicular regions are unremarkable. Imaging obtained through the upper abdomen is equally unremarkable. The adrenal glands are symmetri maya normal. The surrounding chest wall is unremarkable. The osseous structures are remarkable fo r degenerative spondylosis of the spine. CT pulmonary angiogram: There is evidence of bilateral pulmonary emboli in the distal main pulmonary arteries extending norbert g the lumbar segmental and subsegmental branches. There is CT evidence of right heart strain. A call report was made to [facility] SUPERVISORISRAEL Soni at 09:00 a.m. on 02/15/2016 following completion of the ex amination. IMPRESSION: 1. Bilateral pulmonary emboli with CT evidence of right heart strain. 2. Mild cardiomegaly. Aortic vascular calcifications. 3. Trace bilateral pleural effusions with bibasilar atelectasis. RPTAT: BB .Surendra Enriquez MD, MD Date Time Electronically viewed and signed by .Surendra Enriquez MD, MD on 02/15/2016 09:09 .O/
[2016-02-15] MEDS: ENOXAPARIN 60 MG/0.6 ML SYG SC SCH (09:16)
--- NOTE | 2016-02-15 09:17 | RADRPT ---
PROCEDURE: CTA neck CLINICAL INDICATION: CVA TECHNIQUE: The study was performed utilizing a GE 64-slice multidetector CT scanner. Direct thin s ection helical 0.625 mm axial sections were obtained through the neck after the uneventful administr ation of 125 cc of Omnipaque 350 nonionic intravenous contrast material. Coronal and sagittal as we ll as maximal intensity projection reformations were obtained. 3-D images were made. The images wer e reviewed on a PACS workstation. The total CTDIvol is 45.07, 8.85 mGy and the DLP is 403.63 mGy-cm. One or more of the following dose reduction techniques were used: Automated exposure control. Adjustment of the mA and/or kV according to patient size. Use of iterative reconstruction technique. COMPARISON: No prior studies are available for comparison. FINDINGS: CTA NECK: Scattered atherosclerotic plaques are seen in the aortic arch with no hemodynamically sign ificant stenosis at the origins of the great vessels of the aortic arch. The evaluation of the campbell tid bulbs is somewhat limited due to motion artifact. There is a circumferential calcific plaque in the right carotid bulb extending into the proximal ICA with less than 50% stenosis. There is eccen tric calcific plaque in the proximal left carotid artery with no hemodynamically significant stenosi s. Calcific plaques are seen in the cavernous and supraclinoid ICA with no hemodynamically signific ant stenosis. The vertebral arteries are also patent and normal in caliber bilaterally. There is no evidence of a hemodynamically significant stenosis or dissection. IMPRESSION: 1. Mild calcific plaques at both carotid bulbs, bilateral proximal ICAs, and visualized intracrania l ICAs with no hemodynamically significant stenosis. RPTAT: BB .Surendra Enriquez MD, MD Date Time Electronically viewed and signed by .Surendra Enriquez MD, on 02/15/2016 09:17 .O/
--- NOTE | 2016-02-15 10:30 | CONS ---
Date/Time of Note Date/Time of Note DATE: 02/15/16 TIME: 10:27 Assessment/Plan Assessment/Plan Chief Complaint/Hosp Course Syncope/?cardiac arrest: CT confirmed PE so would assume this may have been the culprit. Acute respiratory failure: from PE Shock: likely from PE with RV strain. Now resolved RV dysfunction: secondary to PE H/o HTN -continue lovenox for anticoagulation -vent management/weaning per pulmonary Problems: Consultation Date/Type/Reason Admit Date/Time Feb 13, 2016 at 23:45 Initial Consult Date 02/14/16 Type of Consultation: Cardiology Referring Provider: ANDREW LUIS 24 HR Interval Summary Free Text/Dictation CT chest showed bilateral PEs. Already on anticoagulation. Waking up this am Exam/Review of Systems Vital Signs Vitals Vital Signs Date Time Temp Pulse Resp B/P Pulse Ox O2 Delivery O2 Flow Rate FiO2 02/15/16 09:00 96 18 103/60 100 Mechanical Ventilator 02/15/16 08:00 99.0 02/15/16 08:00 40 02/13/16 20:25 15.0 Intake and Output 02/14/16 02/14/16 02/15/16 15:00 23:00 07:00 Intake Total 354 ml 1000 ml 700 ml Output Total 1000 ml 385 ml 460 ml Balance -646 ml 615 ml 240 ml Exam Constitutional: No alert (waking up ) Head: normocephalic Neck: supple, No jvd Respiratory: diminished breath sounds, No clear to auscultation Cardiovascular: regular rate and rhythm, No edema, No systolic murmur Gastrointestinal: non-tender, soft, No distended Neurological: No nl mental status Results Result Diagram: 02/15/16 0350 02/15/16 0350 Results 24 hrs Laboratory Tests Test 02/15/16 03:50 02/15/16 07:00 Anion Gap 14 Basophils # 0.1 Basophils % 0.3 Blood Urea Nitrogen 21 H Calcium Level 7.3 L Carbon Dioxide Level 25 Chloride Level 113 H Creatinine 0.89 Eosinophils # 0.0 Eosinophils % 0.1 Glucose Level 165 Hematocrit 33.4 L Hemoglobin 10.9 L Lymphocytes # 2.3 Lymphocytes % 13.2 L Magnesium Level 1.8 Mean Corpuscular Hemoglobin 29.8 Mean Corpuscular Hemoglobin Concent 32.7 Mean Corpuscular Volume 91.0 Mean Platelet Volume 9.7 Monocytes # 1.1 H Monocytes % 6.0 Neutrophils # 14.2 H Neutrophils % 80.4 H Nucleated Red Blood Cells # 0.0 Nucleated Red Blood Cells % 0.0 Phosphorus Level 2.3 L Platelet Count 175 Potassium Level 4.4 Red Blood Count 3.67 L Red Cell Distribution Width 13.9 Sodium Level 148 H White Blood Count 17.6 H Arterial Blood HCO3 19.1 L Arterial Blood Base Excess -4.3 L Arterial Blood Oxygen Saturation 97.5 Albert Test ACCEPTAB Arterial Blood Gas Puncture Site Right Radial Arterial Blood Carboxyhemoglobin 0.3 Arterial Blood Date Drawn 02/15/2016 7:30:42 AM Arterial Blood Methemoglobin 0.1 Arterial Blood pCO2 (Temp correct) 30.0 L Arterial Blood pH (Temp corrected) 7.421 Arterial Blood pO2 (Temp corrected) 93.3 H Blood Gas A-a O2 Differential 85.4 H Blood Gas Actual Respiration Rate 14 Blood Gas Low PEEP Setting 0 Blood Gas Modality VENT - AC Blood Gas Notified Time 02/15/2016 8:15:25 AM Blood Gas Notified Whom JLD Blood Gas Respiration Rate 12.0 Blood Gas Specimen Source Blood arterial Blood Gas Temperature 37.0 Blood Gas Tidal Volume 450.0 FiO2 30.0 Oxyhemoglobin Percent 97.1 Total Hemoglobin 12.2 Medications Medications Current Medications Norepinephrine 16 mg/Dextrose 500 ml @ 1.87 mls/hr TITRATE IV Last administered on 02/13/16 23:05; Admin Dose 1.87 MLS/HR; Start 02/13/16 at 23:00 Potassium Chloride/Dextrose/ Sod Cl (D5-1/2ns + KCl 20 Meq) 1,000 ml @ 100 mls/ hr Q10H IV Last administered on 02/15/16 09:28; Admin Dose 100 MLS/HR; Start at 23:39 Ondansetron HCl (Zofran Inj) 4 mg Q6H PRN IV NAUSEA AND/OR VOMITING; Start 02/13 at 00:00 Morphine Sulfate (morphine) 2 mg Q4H PRN IV SEVERE PAIN LEVEL 7-10 Last administered on 02/15/16 03:43; Admin Dose 2 MG; Start 02/14/16 at 00:00 Pantoprazole (Protonix Iv) 40 mg DAILY@06 IV Last administered on 02/15/16 05: 38; Admin Dose 40 MG; Start 02/14/16 at 06:00 Furosemide 40 mg 40 mg DAILY@06 IV Last administered on 02/15/16 05:38; Admin Dose 40 MG; Start 02/14/16 at 06:00 Midazolam HCl 50 mg/Dextrose 50 ml @ 0 mls/hr TITRATE IV Last administered on 03:27; Admin Dose 3 MLS/HR; Start 02/14/16 at 01:30 Piperacillin Sod/ Tazobactam Sod 100 ml @ 200 mls/hr Q8 IVPB Last administered on 02/15/16 05:38; Admin Dose 200 MLS/HR; Start 02/14/16 at 06:30 Vancomycin HCl (Vancocin) 250 ml @ 125 mls/hr Q24H IVPB Last administered on 07:49; Admin Dose 125 MLS/HR; Start 02/14/16 at 07:00 Enoxaparin Sodium (Lovenox) 60 mg Q12 SC Last administered on 02/15/16 09:16; Admin Dose 60 MG; Start 02/14/16 at 21:00 Silver Sulfadiazine (Thermazene 1% 25 Gm) 1 applic DAILY TOP ; Start 02/15/16 at 09:00 AUGUSTINE ROBERTSON Feb 15, 2016 10:30
--- NOTE | 2016-02-15 11:33 | CONS ---
Date/Time of Note Date/Time of Note DATE: 02/15/16 TIME: 11:29 Consult Date/Type/Reason Admit Date/Time Feb 13, 2016 at 23:45 Initial Consult Date 02/14/16 Type of Consultation: Cardiology Ordering Provider: ANDREW LUIS Subjective Intubated, mild sedation, failed cpap trial yesterday. Objective Vital Signs Date Time Temp Pulse Resp B/P Pulse Ox O2 Delivery O2 Flow Rate FiO2 02/15/16 11:10 18 145/113 100 Mechanical Ventilator 02/15/16 11:00 84 02/15/16 08:00 99.0 02/15/16 08:00 40 02/13/16 20:25 15.0 Intake and Output 02/14/16 02/14/16 02/15/16 15:00 23:00 07:00 Intake Total 354 ml 1000 ml 800 ml Output Total 1000 ml 385 ml 460 ml Balance -646 ml 615 ml 340 ml PHYSICAL EXAMINATION: GENERAL: Elderly lady, opens eyes to voice. VITAL SIGNS: as above. NECK: Supple. No JVD or lymphadenopathy. CARDIAC: S1, S2, no added sounds or murmurs. CHEST: Diminished air entry bilaterally with rhonchi. ABDOMEN: Soft, nontender. No guarding or rebound. EXTREMITIES: No cyanosis, clubbing, edema. NEUROLOGIC: Generalized weakness, but no obvious focal deficits. Results/Medications Result Diagram: 02/15/16 0350 02/15/16 0350 Results 24 hrs Laboratory Tests Test 02/15/16 03:50 02/15/16 07:00 Anion Gap 14 Basophils # 0.1 Basophils % 0.3 Blood Urea Nitrogen 21 H Calcium Level 7.3 L Carbon Dioxide Level 25 Chloride Level 113 H Creatinine 0.89 Eosinophils # 0.0 Eosinophils % 0.1 Glucose Level 165 Hematocrit 33.4 L Hemoglobin 10.9 L Lymphocytes # 2.3 Lymphocytes % 13.2 L Magnesium Level 1.8 Mean Corpuscular Hemoglobin 29.8 Mean Corpuscular Hemoglobin Concent 32.7 Mean Corpuscular Volume 91.0 Mean Platelet Volume 9.7 Monocytes # 1.1 H Monocytes % 6.0 Neutrophils # 14.2 H Neutrophils % 80.4 H Nucleated Red Blood Cells # 0.0 Nucleated Red Blood Cells % 0.0 Phosphorus Level 2.3 L Platelet Count 175 Potassium Level 4.4 Red Blood Count 3.67 L Red Cell Distribution Width 13.9 Sodium Level 148 H White Blood Count 17.6 H Arterial Blood HCO3 19.1 L Arterial Blood Base Excess -4.3 L Arterial Blood Oxygen Saturation 97.5 Albert Test ACCEPTAB Arterial Blood Gas Puncture Site Right Radial Arterial Blood Carboxyhemoglobin 0.3 Arterial Blood Date Drawn 02/15/2016 7:30:42 AM Arterial Blood Methemoglobin 0.1 Arterial Blood pCO2 (Temp correct) 30.0 L Arterial Blood pH (Temp corrected) 7.421 Arterial Blood pO2 (Temp corrected) 93.3 H Blood Gas A-a O2 Differential 85.4 H Blood Gas Actual Respiration Rate 14 Blood Gas Low PEEP Setting 0 Blood Gas Modality VENT - AC Blood Gas Notified Time 02/15/2016 8:15:25 AM Blood Gas Notified Whom JLD Blood Gas Respiration Rate 12.0 Blood Gas Specimen Source Blood arterial Blood Gas Temperature 37.0 Blood Gas Tidal Volume 450.0 FiO2 30.0 Oxyhemoglobin Percent 97.1 Total Hemoglobin 12.2 Medications Current Medications Norepinephrine 16 mg/Dextrose 500 ml @ 1.87 mls/hr TITRATE IV Last administered on 02/13/16 23:05; Admin Dose 1.87 MLS/HR; Start 02/13/16 at 23:00 Potassium Chloride/Dextrose/ Sod Cl (D5-1/2ns + KCl 20 Meq) 1,000 ml @ 100 mls/ hr Q10H IV Last administered on 02/15/16 09:28; Admin Dose 100 MLS/HR; Start at 23:39 Ondansetron HCl (Zofran Inj) 4 mg Q6H PRN IV NAUSEA AND/OR VOMITING; Start 02/13 at 00:00 Morphine Sulfate (morphine) 2 mg Q4H PRN IV SEVERE PAIN LEVEL 7-10 Last administered on 02/15/16 03:43; Admin Dose 2 MG; Start 02/14/16 at 00:00 Pantoprazole (Protonix Iv) 40 mg DAILY@06 IV Last administered on 02/15/16 05: 38; Admin Dose 40 MG; Start 02/14/16 at 06:00 Furosemide 40 mg 40 mg DAILY@06 IV Last administered on 02/15/16 05:38; Admin Dose 40 MG; Start 02/14/16 at 06:00 Midazolam HCl 50 mg/Dextrose 50 ml @ 0 mls/hr TITRATE IV Last administered on 03:27; Admin Dose 3 MLS/HR; Start 02/14/16 at 01:30 Piperacillin Sod/ Tazobactam Sod 100 ml @ 200 mls/hr Q8 IVPB Last administered on 02/15/16 05:38; Admin Dose 200 MLS/HR; Start 02/14/16 at 06:30 Vancomycin HCl (Vancocin) 250 ml @ 125 mls/hr Q24H IVPB Last administered on 07:49; Admin Dose 125 MLS/HR; Start 02/14/16 at 07:00 Enoxaparin Sodium (Lovenox) 60 mg Q12 SC Last administered on 02/15/16 09:16; Admin Dose 60 MG; Start 02/14/16 at 21:00 Silver Sulfadiazine (Thermazene 1% 25 Gm) 1 applic DAILY TOP Last administered on 02/15/16 11:22; Admin Dose 1 APPLIC; Start 02/15/16 at 09:00 Assessment/Plan Chief Complaint/Hosp Course IMPRESSION AND PLAN: 1. Syncopal episode. 2. Questionable cardiac arrest. 3. History of dementia. 4. Possible aspiration component. Now with respiratory failure. Plan 1. continue abx 2. Continue vent 3. Tube feeding 4. transfer to [place] The patient to have a UA, C and S and continue mechanical ventilation and will attempt CPAP trial when more alert. Continue DVT and GI prophylaxis. Problems: ASH[facility] SHAFFER [facility] Feb 15, 2016 11:33
--- NOTE | 2016-02-15 13:12 | PDOCDIS ---
Discharge Instructions CONDITION Patient Condition: Serious HOME CARE INSTRUCTIONS: Special Diet: NPO FOR NOW ACTIVITY: Activity Restrictions: Slowly Increase Activity ANDREW LUIS Feb 15, 2016 13:12
--- NOTE | 2016-02-15 13:23 | DS ---
Date/Time of Note Date/Time of Note DATE: 02/15/16 TIME: 13:14 Discharge Summary Admission/Discharge Info Admit Date/Time Feb 13, 2016 at 23:45 Discharge Date/Time Final Diagnosis 1. B/L Pulm Embolism - on lovenox 1 mg/kg Sub Q BID 2. Recurrent syncope - secondary likely to PE (# 1) 3. Questionable history of pulselessness. Once again, according to EMS reports , they feel that the patient did not ever lose pulse and that CPR was given mistakenly as the pulse was difficult to feel secondary to the hypotension. 4. Shock - likely cardiogenic - improved now - off pressors 5. Questionable history of asthma - breathing treatments as needed. 6. 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 7. History of hypertension. Will hold blood pressure medications secondary to hypotension. 8. LE wound - wound care consult - on abx. Patient Condition: Serious Hospital Course 89-year-old female with unclear medical history. According to caregiver, the patient appears to be developing a dementia based on home medications. The patient appears to have hypertension and dyslipidemia. The patient reportedly syncopized at home with a caregiver, but did not lose consciousness. The patient initially syncopized in the bathroom, she did get a cut on her arm. EMS was called, and the patient reportedly did not have a pulse. CPR was done for about 6 to 7 minutes. EMS stated that on arrival they had paramedics stop CPR. The patient was breathing agonally and did have a pulse of sinus tachycardia. En route, the patient was waking up, was moving and talking, and was alert and oriented. EMS reports that they feel that the rib bender were wrong, the patient never lost pulse because of how fast patient woke up and was awake and alert and coherent, so the patient likely just had a syncopal episode with hypotension. On arrival in the ED, the patient was awake and alert, complaining that her chest hurt. She was having difficulty breathing. The patient was tripoding and breathing with pursed lips. She was unable directly to answer any historical questions. The patient kept reporting that her ribs hurt. Ultimately she was admitted for airway protection. In the ICU, intubated and sedated. ECHO was performed showing right heart strain, and pt also had low bp, levophed was started. Pulm and CV team consulted, there was strong clinical suspicion of pulm embolism - and pt started on lovenox 1 mg/kg SubQ BID. CTA confirmed B/L PE (later, per family member - pt has been minimal to non- ambulatory at home since Dec 2015). Head CT neg for bleed, infarct, or mass. Pt found with LE wound - wound care consult obtained, pt also on Vanco and Zosyn IV abx. On day of transfer pt able to be taken off pressor support, but still intubated today (02/15/2016) Home Meds Discontinued Reported Medications Atenolol* (Atenolol*) 50 Mg Tablet, 100 MG PO DAILY, #60 TAB 02/13/16 Atorvastatin Calcium* (Atorvastatin Calcium*) 20 Mg Tablet, 20 MG PO DAILY, #30 TAB 02/13/16 Cyanocobalamin* (Vitamin B-12*) 1,000 Mcg Tablet.sa, 1000 MCG PO DAILY, TAB 02/13/16 Cholecalciferol* (Vitamin D3*) 1,000 Unit Tablet, 1000 UNIT PO DAILY, TAB 02/13/16 Staples-3 Fatty Acids (OMEGA-3) 1,000 Mg Capsule, 1000 MG PO DAILY, CAP 02/13/16 Calcium Carbonate* (Calcium Carbonate*) 600 MG Ca Tab, 600 MG PO BID, TAB 02/13/16 Aspirin* (Aspirin* EC) 81 Mg Tablet.dr, 81 MG PO DAILY, TAB 02/13/16 Furosemide* (Furosemide*) 40 Mg Tablet, 40 MG PO DAILY, TAB 02/13/16 Hydralazine Hcl* (Hydralazine Hcl*) 25 Mg Tab, 25 MG PO BID, #60 TAB 02/13/16 Acetaminophen with Codeine (Tylenol with Codeine #4 Tablet) 1 Each Tablet, 1 EACH PO Q6 Y for PRN, TAB 02/13/16 Cephalexin* (Cephalexin*) 500 Mg Capsule, 500 MG PO Q6, #28 CAP 02/13/16 Losartan Potassium* (Losartan Potassium*) 50 Mg Tablet, 50 MG PO DAILY, TAB 02/13/16 Prednisone* (Prednisone*) 5 Mg Tab, 7.5 MG PO DAILY, TAB 02/13/16 Potassium Chloride* (Klor-Con*) 8 Meq Tablet.sa, 16 MEQ PO DAILY, TAB 02/13/16 Pending Labs Laboratory Tests Test 02/15/16 03:50 02/15/16 07:00 Anion Gap 14 (8-16) Basophils # 0.110^3/ul (0.0-0.1) Basophils % 0.3% (0.0-2.0) Blood Urea Nitrogen 21mg/dl (7-20) Calcium Level 7.3mg/dl (8.4-10.2) Carbon Dioxide Level 25mmol/L (21-31) Chloride Level 113mmol/L (97-110) Creatinine 0.89mg/dl (0.44-1.00) Eosinophils # 0.010^3/ul (0.0-0.5) Eosinophils % 0.1% (0.0-7.0) Glucose Level 165mg/dl (70-220) Hematocrit 33.4% (37.0-47.0) Hemoglobin 10.9g/dl (12.0-16.0) Lymphocytes # 2.310^3/ul (0.8-2.9) Lymphocytes % 13.2% (15.0-51.0) Magnesium Level 1.8mg/dl (1.7-2.5) Mean Corpuscular Hemoglobin 29.8pg (29.0-33.0) Mean Corpuscular Hemoglobin Concent 32.7g/dl (32.0-37.0) Mean Corpuscular Volume 91.0fl (82.0-101.0) Mean Platelet Volume 9.7fl (7.4-10.4) Monocytes # 1.110^3/ul (0.3-0.9) Monocytes % 6.0% (0.0-11.0) Neutrophils # 14.210^3/ul (1.6-7.5) Neutrophils % 80.4% (39.0-77.0) Nucleated Red Blood Cells # 0.010^3/ul (0.0-0.0) Nucleated Red Blood Cells % 0.0/100WBC (0.0-0.0) Phosphorus Level 2.3mg/dl (2.5-4.9) Platelet Count 67239^3/UL (140-440) Potassium Level 4.4mmol/L (3.5-5.1) Red Blood Count 3.6710^6/ul (4.20-5.40) Red Cell Distribution Width 13.9% (11.5-14.5) Sodium Level 148mmol/L (135-144) White Blood Count 17.610^3/ul (4.8-10.8) Arterial Blood HCO3 19.1mmol/L (22.0-26.0) Arterial Blood Base Excess -4.3mmol/L (-3.0-3) Arterial Blood Oxygen Saturation 97.5mmHG (95.0-100.0) Albert Test ACCEPTAB Arterial Blood Gas Puncture Site Right Radial Arterial Blood Carboxyhemoglobin 0.3% (0.0-3.0) Arterial Blood Date Drawn 02/15/2016 7:30:42 AM Arterial Blood Methemoglobin 0.1% (0.0-1.5) Arterial Blood pCO2 (Temp correct) 30.0mmhg (35-45) Arterial Blood pH (Temp corrected) 7.421 (7.350-7.450) Arterial Blood pO2 (Temp corrected) 93.3mmHG (80-90.0) Blood Gas A-a O2 Differential 85.4mmHg (7.0-24.0) Blood Gas Actual Respiration Rate 14 Blood Gas Low PEEP Setting 0cmH2O Blood Gas Modality VENT - AC Blood Gas Notified Time 02/15/2016 8:15:25 AM Blood Gas Notified Whom JLD Blood Gas Respiration Rate 12.0 Blood Gas Specimen Source Blood arterial Blood Gas Temperature 37.0C Blood Gas Tidal Volume 450.0mL FiO2 30.0% Oxyhemoglobin Percent 97.1% (93.0-99.0) Total Hemoglobin 12.2g/dl (12.0-18.0) Microbiology Date/Time Source Procedure Growth Status 02/14/16 16:00 Quiles Catheter Urine Culture - Preliminary NO GROWTH AFTER 24 HOURS Resulted ANDREW LUIS Feb 15, 2016 13:23
--- NOTE | 2016-02-15 15:22 | CONS ---
Date/Time of Note Date/Time of Note DATE: 02/15/16 TIME: 15:17 Consult Date/Type/Reason Admit Date/Time Feb 13, 2016 at 23:45 Initial Consult Date 02/14/16 Type of Consultation: Pulm Ordering Provider: ANDREW LUIS Subjective Comfortable. No new events. Continues ventilator Objective Vital Signs Date Time Temp Pulse Resp B/P Pulse Ox O2 Delivery O2 Flow Rate FiO2 02/15/16 14:30 98 18 106/55 99 02/15/16 14:00 Mechanical Ventilator 02/15/16 12:00 98.9 02/15/16 11:10 40 02/13/16 20:25 15.0 Intake and Output 02/14/16 02/14/16 02/15/16 15:00 23:00 07:00 Intake Total 354 ml 1000 ml 800 ml Output Total 1000 ml 385 ml 460 ml Balance -646 ml 615 ml 340 ml PHYSICAL EXAMINATION: GENERAL: Elderly lady, opens eyes to voice. VITAL SIGNS: as above. NECK: Supple. No JVD or lymphadenopathy. CARDIAC: S1, S2, no added sounds or murmurs. CHEST: Diminished air entry bilaterally with rhonchi. ABDOMEN: Soft, nontender. No guarding or rebound. EXTREMITIES: No cyanosis, clubbing, edema. NEUROLOGIC: Generalized weakness, but no obvious focal deficits. Results/Medications Result Diagram: 02/15/16 0350 02/15/16 0350 Results 24 hrs Laboratory Tests Test 02/15/16 03:50 02/15/16 07:00 Anion Gap 14 Basophils # 0.1 Basophils % 0.3 Blood Urea Nitrogen 21 H Calcium Level 7.3 L Carbon Dioxide Level 25 Chloride Level 113 H Creatinine 0.89 Eosinophils # 0.0 Eosinophils % 0.1 Glucose Level 165 Hematocrit 33.4 L Hemoglobin 10.9 L Lymphocytes # 2.3 Lymphocytes % 13.2 L Magnesium Level 1.8 Mean Corpuscular Hemoglobin 29.8 Mean Corpuscular Hemoglobin Concent 32.7 Mean Corpuscular Volume 91.0 Mean Platelet Volume 9.7 Monocytes # 1.1 H Monocytes % 6.0 Neutrophils # 14.2 H Neutrophils % 80.4 H Nucleated Red Blood Cells # 0.0 Nucleated Red Blood Cells % 0.0 Phosphorus Level 2.3 L Platelet Count 175 Potassium Level 4.4 Red Blood Count 3.67 L Red Cell Distribution Width 13.9 Sodium Level 148 H White Blood Count 17.6 H Arterial Blood HCO3 19.1 L Arterial Blood Base Excess -4.3 L Arterial Blood Oxygen Saturation 97.5 Albert Test ACCEPTAB Arterial Blood Gas Puncture Site Right Radial Arterial Blood Carboxyhemoglobin 0.3 Arterial Blood Date Drawn 02/15/2016 7:30:42 AM Arterial Blood Methemoglobin 0.1 Arterial Blood pCO2 (Temp correct) 30.0 L Arterial Blood pH (Temp corrected) 7.421 Arterial Blood pO2 (Temp corrected) 93.3 H Blood Gas A-a O2 Differential 85.4 H Blood Gas Actual Respiration Rate 14 Blood Gas Low PEEP Setting 0 Blood Gas Modality VENT - AC Blood Gas Notified Time 02/15/2016 8:15:25 AM Blood Gas Notified Whom JLD Blood Gas Respiration Rate 12.0 Blood Gas Specimen Source Blood arterial Blood Gas Temperature 37.0 Blood Gas Tidal Volume 450.0 FiO2 30.0 Oxyhemoglobin Percent 97.1 Total Hemoglobin 12.2 Medications Current Medications Norepinephrine 16 mg/Dextrose 500 ml @ 1.87 mls/hr TITRATE IV Last administered on 02/13/16 23:05; Admin Dose 1.87 MLS/HR; Start 02/13/16 at 23:00 Potassium Chloride/Dextrose/ Sod Cl (D5-1/2ns + KCl 20 Meq) 1,000 ml @ 100 mls/ hr Q10H IV Last administered on 02/15/16 09:28; Admin Dose 100 MLS/HR; Start at 23:39 Ondansetron HCl (Zofran Inj) 4 mg Q6H PRN IV NAUSEA AND/OR VOMITING; Start 02/13 at 00:00 Morphine Sulfate (morphine) 2 mg Q4H PRN IV SEVERE PAIN LEVEL 7-10 Last administered on 02/15/16 11:32; Admin Dose 2 MG; Start 02/14/16 at 00:00 Pantoprazole (Protonix Iv) 40 mg DAILY@06 IV Last administered on 02/15/16 05: 38; Admin Dose 40 MG; Start 02/14/16 at 06:00 Furosemide 40 mg 40 mg DAILY@06 IV Last administered on 02/15/16 05:38; Admin Dose 40 MG; Start 02/14/16 at 06:00 Midazolam HCl 50 mg/Dextrose 50 ml @ 0 mls/hr TITRATE IV Last administered on 03:27; Admin Dose 3 MLS/HR; Start 02/14/16 at 01:30 Piperacillin Sod/ Tazobactam Sod 100 ml @ 200 mls/hr Q8 IVPB Last administered on 02/15/16 14:06; Admin Dose 200 MLS/HR; Start 02/14/16 at 06:30 Vancomycin HCl (Vancocin) 250 ml @ 125 mls/hr Q24H IVPB Last administered on 07:49; Admin Dose 125 MLS/HR; Start 02/14/16 at 07:00 Enoxaparin Sodium (Lovenox) 60 mg Q12 SC Last administered on 02/15/16 09:16; Admin Dose 60 MG; Start 02/14/16 at 21:00 Silver Sulfadiazine (Thermazene 1% 25 Gm) 1 applic DAILY TOP Last administered on 02/15/16 11:22; Admin Dose 1 APPLIC; Start 02/15/16 at 09:00 Assessment/Plan Chief Complaint/Hosp Course IMPRESSION AND PLAN: 1. Syncopal episode. 2. Questionable arrhythmia 3. History of dementia. 4. Possible aspiration component. Now with respiratory failure. Plan 1. continue abx 2. Continue vent, hold off weaning pending transfer to [place] facility. 3. Tube feeding as tolerated. 4. transfer to [place] 5. dvt gi prophylaxis. Problems: [facility]FFER [facility], [facility] Feb 15, 2016 15:22
[2016-02-15] MEDS ORDERED: KETOROLAC 15 MG INJ IV STA (16:57)
== END 2016-02-15 19:15 | disposition short-term general hospital (02) | DRG 208 ==
LOC: E/R 20:17 → ICU 23:45
PROVIDERS: ADMIT Internal Medicine; ATTEND Internal Medicine
PROC: 0BH17EZ Insertion of Endotracheal Airway into Trachea, Via Natural or Artificial Opening (ICD-10-PCS; principal; 2016-02-13)
PROC: 5A1945Z Respiratory Ventilation, 24-96 Consecutive Hours (ICD-10-PCS; 2016-02-13)
DX: I26.99 Other pulmonary embolism without acute cor pulmonale (principal); R57.0 Cardiogenic shock; J96.00 Acute respiratory failure, unspecified whether with hypoxia or hypercapnia; R09.2 Respiratory arrest; G30.9 Alzheimer's disease, unspecified; F02.80 Dementia in other diseases classified elsewhere, unspecified severity, without behavioral disturbance, psychotic disturbance, mood disturbance, and anxiety; I10 Essential (primary) hypertension
CPT/HCPCS: 31500; 36415; 36600; 70450; 70498; 71010; 71275; 80048; 80053; 81001; 81003; 82803; 83036; 83735; 83880; 84100; 84484; 85025; 85610; 85730; 87040; 87070; 87081; 87086; 93005; 93306; 93880; 94002; 94003; 94640; 94664; 94770; 96374; C1751; C9113; J0330; J1650; J1885; J1940; J2250; J2270; J2543; J3370; J3480; J7030; Q9967